=== PATIENT | male | born 1965 | race Caucasian/White ===

== ENCOUNTER 2022-03-08 10:38 | Observation (INO) | payer MEDICARE, MEDICAID ==
[~2022-03-08] VITALS: Ht 180.3 cm; Wt 98.6 kg
[2022-03-08] VITALS (22 sets, daily range): BP systolic 101–139; BP diastolic 55–84
[~2022-03-08 10:38] MED LIST: BACTRIM DS1 TAB PO; FLOMAX0.4 M1 PO; LISINOPRIL10 MG PO; LORTAB 7.5 PO; MULTIVITAMI1 PO; OMEPRAZOLE20 MG PO; PYRIDOXINE100 MG PO
[2022-03-08] MEDS ORDERED: CLOPIDOGREL75 MG PO (10:51)
[2022-03-08] MEDS ORDERED: NITROSTAT0.4 MG SL (10:52)
[2022-03-08] MEDS ORDERED: FINASTERIDE5 MG PO (10:52)
[2022-03-08] MEDS ORDERED: D2000 ULTRA2000 UNIT PO (10:53)
[2022-03-08] MEDS ORDERED: ASPIRIN81 MG PO (10:53)
[2022-03-08] MEDS ORDERED: SERTRALINE50 MG PO (10:54)
[2022-03-08] MEDS ORDERED: DONEPEZIL10 MG PO (10:54)
[2022-03-08] MEDS ORDERED: ALDACTONE50 MG PO (10:55)
[2022-03-08] MEDS ORDERED: MYRBETRIQ25 MG PO (10:55)
[2022-03-08 11:16] LABS: HEMATOCRIT 42.3 % (39.0-50.0); MEAN CORPUSCULAR HGB 31.1 pG CALC (26.0-32.0); MEAN CORPUSCULAR HGB CONC 33.1 g/dL CAL (32.0-36.0); NEUT# 4.85 thou/uL (1.82-7.42); RED BLOOD COUNT 4.5 mill/uL (4.70-6.10); RED CELL DISTRI WIDTH 13.1 % (11.5-15.5)
[2022-03-08 12:05] LABS: ALBUMIN 4.5 g/dL (3.2-5.0); ALKALINE PHOSPHATASE 121 u/l (38-126); ANION GAP 14 (6-22 (CALC)); BILIRUBIN, TOTAL 0.9 mg/dL (0.0-1.4); BUN 19 mg/dL (9-20); BUN/CREATININE RATIO 27 (12-20 (CALC)); CHLORIDE 109 mmol/l (95-108); CPK 75 u/l (52-200); CREATININE 0.7 mg/dL (0.7-1.3); GFR FOR AFR.AMER. > 60 ML/MIN (>=60 (CALC)); GFR OTHER RACES > 60 ML/MIN (>=60 (CALC)); LIPASE 150 u/l (23-300); MAGNESIUM 1.9 mg/dL (1.6-2.3); POTASSIUM 4.8 mmol/l (3.5-5.1); SGOT/AST 29 u/l (17-59); SODIUM 140 mmol/l (137-146)
[2022-03-08 12:09] LABS: CARBON DIOXIDE 22 mmol/l (22-30)
[2022-03-08 12:29] LABS: URINE BILIRUBIN - DIPSTICK NEGATIVE (NEGATIVE); URINE BLOOD DIPSTICK NEGATIVE (NEGATIVE); URINE COLOR YELLOW; URINE GLUCOSE - DIPSTICK NEGATIVE (NEGATIVE); URINE KETONE 15 mg/dL (NEGATIVE); URINE LEUK ESTERASE NEGATIVE (NEGATIVE); URINE PROTEIN - DIPSTICK NEGATIVE (NEG-TRACE); URINE UROBILINOGEN - DIPSTICK 0.2 E.U./dL (0.2)
[2022-03-08 12:33] LABS: URINE NITRITE - DIPSTICK NEGATIVE (Negative)
[2022-03-09 03:42] VITALS: BP 117/72
[2022-03-09 05:30] LABS: HEMATOCRIT 39.2 % (39.0-50.0); MEAN CELL VOLUME 95.6 fL CALC (80.0-100.0); MEAN CORPUSCULAR HGB 31.7 pG CALC (26.0-32.0); MEAN CORPUSCULAR HGB CONC 33.2 g/dL CAL (32.0-36.0); NEUT# 3.39 thou/uL (1.82-7.42); RED BLOOD COUNT 4.1 mill/uL (4.70-6.10); RED CELL DISTRI WIDTH 13.2 % (11.5-15.5)
[2022-03-09 05:59] LABS: ANION GAP 12 (6-22 (CALC)); BUN 15 mg/dL (9-20); BUN/CREATININE RATIO 20 (12-20 (CALC)); CARBON DIOXIDE 25 mmol/l (22-30); CHLORIDE 107 mmol/l (95-108); CREATININE 0.7 mg/dL (0.7-1.3); GFR FOR AFR.AMER. > 60 ML/MIN (>=60 (CALC)); GFR OTHER RACES > 60 ML/MIN (>=60 (CALC)); HDL CHOLESTEROL 46 mg/dL (>=40); POTASSIUM 4.1 mmol/l (3.5-5.1); SODIUM 141 mmol/l (137-146); TOTAL TRIGLYCERIDES 89 mg/dl (30-149); VLDL CHOLESTROL 18 mg/dl (8-62 (CALC))
[2022-03-09 06:13] LABS: CALCULATED LDLCHOLESTEROL 89 mg/dL (62-129 (CALC)); CHOLESTEROL HDL RATIO 3.3 (<4.4 (CALC)); TOTAL CHOLESTEROL 153 mg/dl (0-199)
[2022-03-09 06:54] VITALS: BP 110/77
[2022-03-09 10:47] VITALS: BP 110/76
[2022-03-09] MEDS ORDERED: MECLIZINE25 MG PO (11:10)
[2022-03-10] MEDS ORDERED: MECLIZINE25 MG PO (09:32)
== END 2022-03-09 14:20 | disposition home health service (06) ==
LOC: ED 10:38 → ED-I 13:20 → ED 13:36 → MS2 13:37
PROVIDERS: Internal Medicine; Nurse Practitioner; ADMIT Internal Medicine; ATTEND Internal Medicine
DX: H81.10 Benign paroxysmal vertigo, unspecified ear (principal); I10 Essential (primary) hypertension; F32.A Depression, unspecified; I25.2 Old myocardial infarction; Z86.718 Personal history of other venous thrombosis and embolism; Z85.46 Personal history of malignant neoplasm of prostate; Z95.0 Presence of cardiac pacemaker; Z20.822 Contact with and (suspected) exposure to COVID-19
CPT/HCPCS: J1650; Q9967